=== PATIENT | male | born 1995 | race Two or more races ===

== ENCOUNTER → 2019-03-04 | Outpatient (REF) | payer BC | LOC: M LAB REF 16:42 | PROVIDERS: ATTEND Nurse Practitioner Adult Health | DX: J02.9 Acute pharyngitis, unspecified (principal) ==

== ENCOUNTER → 2019-05-09 | Outpatient (REF) | payer BC | LOC: M LAB REF 16:16 | PROVIDERS: ATTEND Nurse Practitioner Adult Health | DX: J02.9 Acute pharyngitis, unspecified (principal) ==

== ENCOUNTER → 2021-01-11 | Outpatient (REF) | payer BC | LOC: M LAB REF 16:27 | PROVIDERS: ATTEND Family Medicine | DX: R53.83 Other fatigue (principal); R43.0 Anosmia ==